=== PATIENT | female | born 1965 | race Caucasian/White ===

== ENCOUNTER 2016-12-08 16:54 | Emergency (ER) | payer SELFPAY ==
[~2016-12-08] VITALS: Ht 157.5 cm; Wt 90.7 kg
[2016-12-08] MEDS ORDERED: ADENOSINE 6 MG/2 ML VIAL IV ONE ×3 (17:06→18:00)
[2016-12-08] MEDS ORDERED: IV NORMAL SALINE 1000ML BAG 1,000 ML IV SCH (17:16)
[2016-12-08 17:42] LABS: BASO # 0.1 x10^3/uL (0.0-0.2); BASO % 1 % (0-3); EOS % 3 % (0-3); HEMATOCRIT 42.7 % (36.0-47.0); HEMOGLOBIN 14.2 g/dL (12.0-15.5); LYMPH # 2.9 x10^3/uL (1.0-4.8); LYMPH % 28 % (24-48); MEAN CORPUSCULAR HEMOGLOBIN 30 pg (25-35); MEAN CORPUSCULAR HGB CONC 33 g/dL (31-37); MEAN CORPUSCULAR VOLUME 91 fL (79-100); MONO % 6 % (0-9); NEUT % 61 % (31-73); PLATELET COUNT 244 x10^3/uL (140-400); RED BLOOD COUNT 4.68 x10^6/uL (3.50-5.40); RED CELL DISTRIBUTION WIDTH 12.8 % (11.5-14.5); WHITE BLOOD COUNT 10.4 x10^3/uL (4.0-11.0)
[2016-12-08 17:53] LABS: NEG OBC UR NEG; POS OBC UR POS
[2016-12-08 17:54] LABS: CALCIUM 9.4 mg/dL (8.5-10.1); CREATININE 0.7 mg/dL (0.6-1.0); GFR 87.9; MAGNESIUM 1.9 mg/dL (1.8-2.4)
[2016-12-08] MEDS ORDERED: ADENOSINE 100MCG/ML SYRINGE. IV ONE (18:00)
[2016-12-08] MEDS ORDERED: FLEC100T PO (19:13)
--- NOTE | 2016-12-08 19:15 | PHYS DOC ---
Past Medical History Past Medical History: High Cholesterol Additional Past Medical Histor: SVT Past Surgical History: No Surgical History Alcohol Use: Occasionally Additional Information: 3-4 DRINKS/WEEK Drug Use: None Adult General Chief Complaint Chief Complaint: RAPID HEART RATE HPI HPI Patient is a 51 year old female who presents with rapid heart rate. Patient reports this started approximately 1600 this afternoon while she was at work. She reports feeling short of breath and lightheaded. Patient reports similar episodes approximately 2 and 10 years ago. She denies any cardiac history other than SVT. Review of Systems Review of Systems Constitutional: Lightheaded. Denies fever or chills Eyes: Denies change in visual acuity or eye pain HENT: Denies nasal congestion or sore throat Respiratory: Shortness of breath Cardiovascular: Chest tight GI: Denies abdominal pain, nausea, vomiting, bloody stools or diarrhea : Denies dysuria or hematuria Musculoskeletal: Denies back pain or joint pain Integument: Denies rash or skin lesions Neurologic: Denies headache, focal weakness or sensory changes Current Medications Current Medications Current Medications Medications (Trade) Dose Ordered Sig/Darcie Start Time Stop Time Status Last Admin Dose Admin Adenosine (Adenocard) 6 mg 1X ONCE 12/08/16 18:00 12/08/16 18:01 DC 12/08/16 17:10 6 MG Adenosine 6 mg 6 mg STK-MED ONCE 12/08/16 17:06 12/08/16 17:07 DC Sodium Chloride (Iv Sodium Chloride 0.9% 1000ml Bag) 1,000 ml @ 1,000 mls/hr Q1H 12/08/16 17:16 12/08/16 18:15 DC 12/08/16 17:47 1,000 MLS/HR Allergies Allergies Allergies Coded Allergies Type Severity Reaction Last Updated Verified No Known Drug Allergies 12/08/16 No Physical Exam Physical Exam Constitutional: Well developed, well nourished, no acute distress, non-toxic appearance. [] HENT: Normocephalic, atraumatic, bilateral external ears normal, oropharynx moist, no oral exudates, nose normal. [] Eyes: PERRLA, EOMI, conjunctiva normal, no discharge. [] Neck: Normal range of motion, no tenderness, supple, no stridor. [] Cardiovascular:Heart rate regular rhythm, no murmur [] Lungs & Thorax: Bilateral breath sounds clear to auscultation [] Abdomen: Bowel sounds normal, soft, no tenderness, no masses, no pulsatile masses. [] Skin: Warm, dry, no erythema, no rash. [] Back: No tenderness, no CVA tenderness. [] Extremities: No tenderness, no cyanosis, no clubbing, ROM intact, no edema. [] Neurologic: Alert and oriented X 3, normal motor function, normal sensory function, no focal deficits noted. [] Psychologic: Affect normal, judgement normal, mood normal. [] Current Patient Data Vital Signs Vital Signs Date Time Temp Pulse Resp B/P Pulse Ox O2 Delivery O2 Flow Rate FiO2 12/08/16 19:20 100 20 116/87 100 Room Air 12/08/16 17:02 98.0 98.0 Lab Values Laboratory Tests Test 12/08/16 17:00 12/08/16 17:30 White Blood Count 10.4x10^3/uL (4.0-11.0) Red Blood Count 4.68x10^6/uL (3.50-5.40) Hemoglobin 14.2g/dL (12.0-15.5) Hematocrit 42.7% (36.0-47.0) Mean Corpuscular Volume 91fL (79-100) Mean Corpuscular Hemoglobin 30pg (25-35) Mean Corpuscular Hemoglobin Concent 33g/dL (31-37) Red Cell Distribution Width 12.8% (11.5-14.5) Platelet Count 244x10^3/uL (140-400) Neutrophils (%) (Auto) 61% (31-73) Lymphocytes (%) (Auto) 28% (24-48) Monocytes (%) (Auto) 6% (0-9) Eosinophils (%) (Auto) 3% (0-3) Basophils (%) (Auto) 1% (0-3) Neutrophils # (Auto) 6.4x10^3uL (1.8-7.7) Lymphocytes # (Auto) 2.9x10^3/uL (1.0-4.8) Monocytes # (Auto) 0.7x10^3/uL (0.0-1.1) Eosinophils # (Auto) 0.3x10^3/uL (0.0-0.7) Basophils # (Auto) 0.1x10^3/uL (0.0-0.2) Sodium Level 142mmol/L (136-145) Potassium Level 4.0mmol/L (3.5-5.1) Chloride Level 103mmol/L (98-107) Carbon Dioxide Level 26mmol/L (21-32) Anion Gap 13 (6-14) Blood Urea Nitrogen 15mg/dL (7-20) Creatinine 0.7mg/dL (0.6-1.0) Estimated GFR (Cockcroft-Gault) 87.9 Glucose Level 116mg/dL (70-99) H Calcium Level 9.4mg/dL (8.5-10.1) Magnesium Level 1.9mg/dL (1.8-2.4) Troponin I Quantitative < 0.017ng/mL (0.000-0.055) Thyroid Stimulating Hormone (TSH) 2.895uIU/mL (0.358-3.74) Urine Test Negative (NEG) Laboratory Tests 12/08/16 17:00 Laboratory Tests 12/08/16 17:00 EKG EKG EKG (my read): Narrow complex tachycardia, rate 179, normal axis Repeat EKG (my read): sinus tachycardia, rate 110, normal axis, QTc 510ms, nonspecific ST changes Radiology/Procedures Radiology/Procedures CXR (my read): Cardiomegaly. No acute abnormality. Course & Med Decision Making Course & Med Decision Making Pertinent Labs and Imaging studies reviewed. (See chart for details) Patient is 51-year-old female who presents with SVT. Heart rate approximately 180 my arrival into the room. Patient awake, oriented, with okay blood pressure. 2 doses of adenosine given (6mg then 12mg), with subsequent conversion to sinus tachycardia. IV fluid bolus, chest x-ray, labs ordered. Imaging results as above. Labs unremarkable. Patient asymptomatic after conversion, and says she feels much better. Heart rate down to 100 after IV fluids. I discussed the case with Dr. Rodriguez; as she is now asymptomatic will be ok to discharge home. Per his recommendation, will start patient on flecainide 100mg BID (after reconfirming with her that she does not have CAD). Patient discharged with instructions for close outpatient follow-up and strict return precautions. Dragon Disclaimer Dragon Disclaimer This electronic medical record was generated, in whole or in part, using a voice recognition dictation system. Departure Departure Impression: Primary Impression: SVT (supraventricular tachycardia) Disposition: 01 HOME, SELF-CARE Condition: IMPROVED Referrals: UNKNOWN PCP NAME (PCP) PJ RODRIGUEZ MD Patient Instructions: Supraventricular Tachycardia Additional Instructions: Thank you for allowing us to provide care today in the Emergency Department. Take the provided medication as directed. Schedule a follow up appointment with your primary care doctor as soon as possible. Also schedule a follow up appointment with Dr. Rodriguez (firer [employer]) using the provided contact information. Return promptly to the Emergency Department if you develop any new or concerning symptoms. Scripts Flecainide Acetate 100 Mg Tablet1 Tab PO BID #60 TAB Ref 0 Prov:KHARI SORTO MD 12/08/16 KHARI SORTO MD Dec 08, 2016 19:15
[2016-12-08 19:20] VITALS: BP 116/87
--- NOTE | 2016-12-09 08:51 | RAD ---
Portable chest, 12/08/2016: History: Supraventricular tachycardia Comparison is made to a study from 01/10/2007. The heart is enlarged. The pulmonary vascularity is normal. No pulmonary infiltrates are seen. There is no evidence of pleural fluid. IMPRESSION: 1. Cardiomegaly. 2. No acute abnormality is detected.
--- NOTE | 2016-12-09 09:08 | EKG ---
[facility] [address] [place] [address] Test Date: 2016-12-08 Test Time: 16:57:17 Pat Name: TEJ MARK Department: Room: Gender: F Physician Internist: : 1965 Requested By: KHARI SORTO Order Number: [id number] Reading MD: Measurements Intervals [place] Rate: 179 P: ME: QRS: 59 QRSD: 76 T: -49 QT: 262 QTc: 460 Interpretive Statements SUPRAVENTRICULAR TACHYCARDIA QRS(T) CONTOUR ABNORMALITY CONSIDER ANTEROSEPTAL MYOCARDIAL DAMAGE ST ABNORMALITY, POSSIBLE INFERIOR SUBENDOCARDIAL INJURY ABNORMAL ECG RI6.01 No previous ECG available for comparison
--- NOTE | 2016-12-09 09:12 | EKG ---
[facility] [address] [place] [address] Test Date: 2016-12-08 Test Time: 17:10:11 Pat Name: TEJ MARK Department: Room: Gender: F Undercover Cop: : 1965 Requested By: KHARI SORTO Order Number: [id number] Reading MD: Measurements Intervals [place] Rate: 117 P: -109 IN: 120 QRS: 63 QRSD: 78 T: 25 QT: 360 QTc: 507 Interpretive Statements SINUS TACHYCARDIA QRS(T) CONTOUR ABNORMALITY CONSIDER ANTEROLATERAL MYOCARDIAL DAMAGE CONSIDER INFERIOR MYOCARDIAL DAMAGE POSSIBLY ABNORMAL ECG RI6.01 No previous ECG available for comparison
--- NOTE | 2016-12-09 09:13 | EKG ---
[facility] [address] [place] [address] Test Date: 2016-12-08 Test Time: 17:11:17 Pat Name: TEJ MARK Department: Room: Gender: F Local Sales Associate: : 1965 Requested By: KHARI SORTO Order Number: [id number] Reading MD: Measurements Intervals [place] Rate: 110 P: 62 WV: 154 QRS: 62 QRSD: 78 T: 15 QT: 372 QTc: 510 Interpretive Statements SINUS TACHYCARDIA QRS(T) CONTOUR ABNORMALITY CONSIDER ANTEROLATERAL MYOCARDIAL DAMAGE POSSIBLY ABNORMAL ECG RI6.01 No previous ECG available for comparison
== END 2016-12-08 19:20 | disposition home or self-care (01) ==
LOC: ER 16:54
DX: I47.1 Supraventricular tachycardia (principal); E78.00 Pure hypercholesterolemia, unspecified
CPT/HCPCS: 36415; 71010; 80048; 81025; 83735; 84443; 84484; 85027; 93005; 96360; 96374; 99285; J0153; J7030

== ENCOUNTER 2017-04-07 16:36 | Emergency (ER) | payer SELFPAY ==
[~2017-04-07 16:36] MED LIST: FLEC100T PO
[2017-04-07 16:55] VITALS: BP 162/79
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
== END 2017-04-07 17:12 | disposition home or self-care (01) ==
LOC: ER 16:36
DX: S62.102A Fracture of unspecified carpal bone, left wrist, initial encounter for closed fracture (principal); E78.00 Pure hypercholesterolemia, unspecified; I10 Essential (primary) hypertension; M19.90 Unspecified osteoarthritis, unspecified site; W18.39XA Other fall on same level, initial encounter; Y93.89 Activity, other specified; Y99.8 Other external cause status; Y92.89 Other specified places as the place of occurrence of the external cause
CPT/HCPCS: 99281